=== PATIENT | female | born 1945 | race Caucasian/White ===

== ENCOUNTER 2018-01-03 21:09 | Emergency (ER) | payer MEDICARE, BC ==
--- NOTE | 2018-01-03 21:45 | EDM.PDOC ---
ED HPI GENERAL MEDICAL PROBLEM - General Chief Complaint: Syncope Stated Complaint: NORTH TO ER Time Seen by Provider: 01/03/18 21:25 Source of Information: Reports: Patient, EMS, Family History Limitations: Reports: No Limitations - History of Present Illness INITIAL COMMENTS - FREE TEXT/NARRATIVE: 72-year-old female had some soup earlier today that upset her stomach, tonight she was at the dinner table having supper when she felt nauseated and uncomfortable. She then developed lightheadedness and profuse diaphoresis and discomfort. She did not have palpitations, shortness of breath, abdominal pain or headache. She then thought she should get up but before she could she gets so lightheaded that her friends were helping her and then she passed out onto the floor. EMS was called for an unresponsive patient. By the time they arrived she was conscious and alert but still feeling malaise uncomfortable. Her vitals were stable. Glucose was 187. She was brought in for evaluation. No previous syncopal episodes. Onset: Sudden Duration: Hour(s): (Within the last hour) Severity: Moderate Associated Symptoms: Reports: Diaphoresis, Syncope Treatments CLIENT RELATIONS SPECIALIST: Reports: Aspirin, Nitroglycerin chest pressure Pain Score (Numeric/FACES): 4 - Related Data Allergies Allergy/AdvReac Type Severity Reaction Status Date / Time No Known Allergies Allergy Verified 01/03/18 22:17 Home Meds: Home Meds Aspirin [Ecotrin] 81 mg PO DAILY 04/18/13 [History] Ca Carbonate/Vitamin D3/Vit K [Calcium + D Soft Chewable Tab] 1 each PO DAILY [History] M-Vit,Tx,Iron,Mins/Calc/Folic [Therapeutic M] 1 each PO DAILY 04/18/13 [History] ED ROS GENERAL - Review of Systems Review Of Systems: See Below Constitutional: Denies: Fever, Chills HEENT: Reports: No Symptoms Respiratory: Denies: Shortness of Breath Cardiovascular: Denies: Chest Pain GI/Abdominal: Reports: Nausea. Denies: Abdominal Pain, Diarrhea : Reports: No Symptoms Skin: Reports: Pallor, Diaphoresis Neurological: Reports: Syncope - Physical Exam Exam: See Below Exam Limited By: No Limitations General Appearance: Alert, No Apparent Distress Eye Exam: Bilateral Eye: Normal Inspection Throat/Mouth: Normal Inspection Head Exam: Atraumatic Neck: Normal Inspection. No: Carotid Bruit Respiratory/Chest: No Respiratory Distress, Lungs Clear Cardiovascular: Regular Rate, Rhythm. No: Extra Beats GI/Abdominal: Normal Bowel Sounds, Soft, Other (General discomfort with palpation of the abdomen but no tenderness, ) Neuro Exam (Abbreviated): Alert, Oriented, No Motor/Sensory Deficits Extremities: Normal Inspection. No: Pedal Edema Psychiatric: Normal Affect, Normal Mood Skin Exam: Warm, Dry EKG INTERPRETATION Rhythm: NSR Course - Vital Signs Last Recorded V/S: Last Vital Signs Temp 96.8 F 01/03/18 21:31 Pulse 71 01/03/18 22:01 Resp 16 01/03/18 22:01 BP 123/63 01/03/18 22:01 Pulse Ox 96 01/03/18 22:01 - Orders/Labs/Meds Orders: Active Orders 24 hr Category Date Time Status EKG Documentation Completion [RC] ASDIRECTED Care 01/03/18 21:32 Active EKG 12 Lead [EK] Routine Ther 01/03/18 21:32 Ordered Labs: Laboratory Tests 01/03/18 01/03/18 Range/Units 21:32 21:32 WBC 6.6 (4.5-11.0) K/uL RBC 4.39 (3.30-5.50) M/uL Hgb 13.4 (12.0-15.0) g/dL Hct 40.0 (36.0-48.0) % MCV 91 (80-98) fL MCH 31 (27-31) pg MCHC 34 (32-36) % Plt Count 221 (150-400) K/uL Neut % (Auto) 60 (36-66) % Lymph % (Auto) 30 (24-44) % [place] % (Auto) 9 H (2-6) % Eos % (Auto) 1 L (2-4) % Baso % (Auto) 0 (0-1) % Sodium 139 L (140-148) mmol/L Potassium 3.6 (3.6-5.2) mmol/L Chloride 107 (100-108) mmol/L Carbon Dioxide 22 (21-32) mmol/L Anion Gap 13.6 (5.0-14.0) mmol/L BUN 15 (7-18) mg/dL Creatinine 1.1 H (0.6-1.0) mg/dL Est Cr Clr Drug Dosing 39.92 mL/min Estimated GFR (MDRD) 49 L (>60) Glucose 143 H (74-106) mg/dL Calcium 8.1 L (8.5-10.1) mg/dL Total Bilirubin 0.2 (0.2-1.0) mg/dL AST 16 (15-37) U/L ALT 23 (12-78) U/L Alkaline Phosphatase 72 (46-116) U/L Total Protein 5.9 L (6.4-8.2) g/dL Albumin 3.1 L (3.4-5.0) g/dL Globulin 2.8 (2.3-3.5) g/dL Albumin/Globulin Ratio 1.1 L (1.2-2.2) - Re-Assessments/Exams Free Text/Narrative Re-Assessment/Exam: 01/03/18 21:44 EKG confirmed normal sinus rhythm. She was kept on a manager cardiac and a CBC, CMP were obtained. 01/03/18 22:09 CBC was completely normal, chemistry profile came back slightly abnormal with a creatinine of 1.1, GFR slightly low indicating mild dehydration. She is going to push fluids for the next 24 hours and return if worsening. Departure - Departure Time of Disposition: 22:32 Disposition: Home, Self-Care 01 Condition: Good Clinical Impression: Vasovagal syncope - Discharge Information Instructions: Vasovagal Syncope, Adult Referrals: PCP,None [Primary Care Provider] - Forms: ED Department Discharge Care Plan Goals: Drink lots of water, increase activity and diet as tolerated and consider rechecking at any time if you feel you're worsening. - My Orders Last 24 Hours: My Active Orders 01/03/18 21:32 EKG Documentation Completion [RC] ASDIRECTED EKG 12 Lead [EK] Routine - Assessment/Plan Last 24 Hours: My Active Orders 01/03/18 21:32 EKG Documentation Completion [RC] ASDIRECTED EKG 12 Lead [EK] Routine
== END 2018-01-03 22:32 | disposition home or self-care (01) ==
LOC: JP.ED 21:09
DX: R55 Syncope and collapse (principal); Z79.82 Long term (current) use of aspirin
CPT/HCPCS: 36415; 80053; 85025; 93005; 99284-25

== ENCOUNTER 2018-05-04 09:41 | Emergency (ER) | payer BC, MEDICARE ==
[2018-05-04] MEDS ORDERED: Lidocaine 2% Jelly 10 ML Urojet MUCMEM ONE (10:22)
--- NOTE | 2018-05-04 10:25 | EDM.PDOC ---
ED HPI GENERAL MEDICAL PROBLEM - General Chief Complaint: Gastrointestinal Problem Stated Complaint: COLON PAIN Time Seen by Provider: 05/04/18 10:10 Source of Information: Reports: Patient History Limitations: Reports: No Limitations - History of Present Illness INITIAL COMMENTS - FREE TEXT/NARRATIVE: 73-year-old female who is usually regular, has a bowel movement every morning developed lower abdominal discomfort and constipation for the last 3 days. This has not happened to her before, however she does get regular colonoscopies because her brother has colon cancer and her last one was fine. She has not noticed any dark stools or bloody stools. No fevers or chills, her abdomen does not feel bloated, she has no dysuria or back pain. 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 Denies: Diarrhea, Nausea, Vomiting : Reports: No Symptoms Skin: Reports: No Symptoms Neurological: Reports: No Symptoms Psychiatric: Reports: Other (She is under a lot of stress right now) ED EXAM, GI/ABD - Physical Exam Exam: See Below Exam Limited By: No Limitations General Appearance: Alert, No Apparent Distress Eyes: Bilateral: Normal Appearance (No jaundice) Head: Atraumatic Respiratory/Chest: No Respiratory Distress Cardiovascular: Regular Rate, Rhythm GI/Abdominal Exam: Soft, Non-Tender Rectal (Female) Exam: Hemorrhoids (There were several mildly thrombosed external hemorrhoids but they were not particularly tender. Digital exam revealed a moderate amount of soft stool, no significant impaction or masses. Stool is normal color. This was done after a Urojet was inserted for anesthesia. ) Skin Exam: Warm, Dry Course - Vital Signs Last Recorded V/S: Last Vital Signs Temp 96.3 F 05/04/18 10:12 Pulse 81 05/04/18 10:12 Resp 16 05/04/18 10:12 BP 167/76 H 05/04/18 10:12 Pulse Ox 98 05/04/18 10:12 - Orders/Labs/Meds Meds: Medications Discontinued Medications Generic Name Dose Route Start Last Admin Trade Name Nidia PRN Reason Stop Dose Admin Lidocaine HCl 10 ml 05/04/18 10:22 05/04/18 10:33 Xylocaine 2% Jelly MUCMEM 05/04/18 10:23 10 ml ONETIME ONE Administration - Re-Assessments/Exams Free Text/Narrative Re-Assessment/Exam: 05/04/18 10:35 A tap water enema will be provided. 05/04/18 11:08 Within 20 minutes the patient had a moderate bowel movement symptoms resolved. She was discharged encouraged to take docusate sodium on a regular basis to keep stools soft and return if symptoms redevelop. Departure - Departure Time of Disposition: 11:30 Disposition: Home, Self-Care 01 Condition: Good Clinical Impression: Constipation Qualifiers: Constipation type: unspecified constipation type Qualified Code(s): K59.00 - Constipation, unspecified - Discharge Information Instructions: Constipation, Adult, [id number] Referrals: Tucker Mcgrath MD [Primary Care Provider] - Forms: ED Department Discharge Care Plan Goals: Consider a regular dose of docusate sodium as a stool softener. Stay hydrated with water and return if symptoms redevelop or you have other concerns.
== END 2018-05-04 11:31 | disposition home or self-care (01) ==
LOC: JP.ED 09:41
DX: K59.00 Constipation, unspecified (principal); Z79.82 Long term (current) use of aspirin; Z79.899 Other long term (current) drug therapy
CPT/HCPCS: 99284

== ENCOUNTER 2019-02-11 08:09 | Day surgery (SDC) | payer MEDICARE ==
[2019-02-11] MEDS ORDERED: fentaNYL 100 MCG/2 ML SDV ONE (08:53)
[2019-02-11] MEDS ORDERED: Propofol 200 MG/20 ML SDV ONE (08:53)
[2019-02-11] MEDS ORDERED: Midazolam 1 MG/ML 2 ML SDV ONE (08:53)
[2019-02-11] MEDS: Sodium Chloride 0.9% 1,000 ML IV SCH (08:56)
[2019-02-11] MEDS ORDERED: Lidocaine 1% 4 ML ONE (09:32)
--- NOTE | 2019-02-11 12:42 | OR ---
DATE OF PROCEDURE: 02/11/2019 SURGEON: Ezra Gibson MD PROCEDURE: Colonoscopy. FINDINGS: Normal colonoscopy. PREOPERATIVE DIAGNOSIS: Family history of colorectal cancer. POSTOPERATIVE DIAGNOSIS: Family history of colorectal cancer. RISKS: Risks, benefits, alternatives, and limitations including, but not limited to infection, bleeding, pain, and perforation were explained to the patient, and they wished to proceed. PROCEDURE IN DETAIL: The patient was placed in left lateral decubitus position. Digital rectal exam was performed without abnormality. The scope was introduced atraumatically to the ileocecal valve. The scope was brought back through the ascending, transverse, descending colon, and retroflexed. No evidence of old or new blood. No masses. No polyps. No abnormalities on retroflex. The prep was moderately acceptable with some liquid and solid stool, however, 90% of the luminal surface could be seen. The patient tolerated the procedure well. Ezra Gibson MD /[id number]
== END 2019-02-11 11:09 | disposition home or self-care (01) ==
LOC: JP.SDS 08:09
PROVIDERS: ATTEND Surgery
DX: Z12.11 Encounter for screening for malignant neoplasm of colon (principal); Z80.0 Family history of malignant neoplasm of digestive organs
CPT/HCPCS: J2001; J2250; J2704; J3010; J7030

== ENCOUNTER 2023-08-27 19:47 | Emergency (ER) | payer MEDICARE ==
[2023-08-27] MEDS: Proparacaine 0.5% Ophth Soln 15 ML Bottle EYERT ONE (20:40)
== END 2023-08-27 20:45 | disposition home or self-care (01) ==
LOC: JP.ED 19:47
DX: T15.11XA Foreign body in conjunctival sac, right eye, initial encounter (principal); W44.8XXA Other foreign body entering into or through a natural orifice, initial encounter
CPT/HCPCS: 65222; 99283; A9270